=== PATIENT | male | born 1930 | race Caucasian/White ===

== ENCOUNTER 2016-07-05 16:29 | Emergency (ER) | payer MEDICARE, OTHER ==
[~2016-07-05 16:29] MED LIST: ALBUTEROL S3 ML/VIAL NEB; ARICEPT10 MG PO; AUGMENTIN 875-1 EACH PO; BENECALORI7.5 KCAL/1 PO; CARDIZEM60 MG PO; CILOSTAZOL100 MG PO; CULTURELLE1 EACH PO; DAILY VITE1 EACH PO; ENEMA READY TO133 ML RC; IPRAT-ALBUT 0.5-3 ML NEB; LACTULOSE10 GM/151 PO; LACTULOSE20 GM/30 M PO; LIPITOR10 MG PO; METOPROLOL TART25 MG PO; MICATIN14 GM TOP; MUCINEX600 MG PO; NAMENDA XR14 MG PO; PEPCID20 MG PO; PLAVIX75 MG PO; PREDNISONE10 MG PO; ROBITUSSIN COU1 EACH PO; SEROQUEL25 MG PO; SPIRIVA18 MCG IH; TYLENOL EXTRA500 MG PO; ZOFRAN4 MG PO; [UNRECOGNIZED DRUG - OTHER] PO
== END 2016-07-05 19:22 | disposition critical access hospital (66) ==
LOC: ER 16:29
DX: E87.0 Hyperosmolality and hypernatremia (principal); E86.0 Dehydration; I13.0 Hypertensive heart and chronic kidney disease with heart failure and stage 1 through stage 4 chronic kidney disease, or unspecified chronic kidney disease; N18.3 Chronic kidney disease, stage 3 (moderate); I50.9 Heart failure, unspecified; N17.9 Acute kidney failure, unspecified; F03.91 Unspecified dementia, unspecified severity, with behavioral disturbance; R13.10 Dysphagia, unspecified; I25.2 Old myocardial infarction; E78.5 Hyperlipidemia, unspecified; I73.9 Peripheral vascular disease, unspecified; Z86.73 Personal history of transient ischemic attack (TIA), and cerebral infarction without residual deficits; Z87.891 Personal history of nicotine dependence; Z90.89 Acquired absence of other organs; Z79.899 Other long term (current) drug therapy; Z88.8 Allergy status to other drugs, medicaments and biological substances
CPT/HCPCS: 36415; 96361; 96365; 96375; J2704

== ENCOUNTER 2016-07-05 16:29 | Inpatient (IN) | payer MEDICARE, OTHER ==
--- NOTE | 2016-07-17 07:23 | NUR ---
LATE ENTRY: AT 1450 ON 07/15/16 PATIENT WAS FOUND WITH NO PULSE AND NO RESPIRATIONS. PUPILS FIXED. PERCY RUIZ NOTIFIED. THEN DR. SANTILLAN WAS NOTIFIED AND THE PATIENT PRONOUNCED . ESPERANZA GREEN PA-C TO NOTIFY FAMILY.
== END 2016-07-15 17:45 | disposition expired | DRG 682 ==
LOC: ER 16:29 → MED 19:23
PROVIDERS: ADMIT Internal Medicine
DX: N17.9 Acute kidney failure, unspecified (principal); G93.40 Encephalopathy, unspecified; E87.0 Hyperosmolality and hypernatremia; J96.10 Chronic respiratory failure, unspecified whether with hypoxia or hypercapnia; E87.2 Acidosis; E46 Unspecified protein-calorie malnutrition; Z68.1 Body mass index [BMI] 19.9 or less, adult; E87.5 Hyperkalemia; R34 Anuria and oliguria; D72.829 Elevated white blood cell count, unspecified; J44.9 Chronic obstructive pulmonary disease, unspecified; Z99.81 Dependence on supplemental oxygen; F01.50 Vascular dementia, unspecified severity, without behavioral disturbance, psychotic disturbance, mood disturbance, and anxiety; E78.5 Hyperlipidemia, unspecified; R13.10 Dysphagia, unspecified; E86.0 Dehydration; Z66 Do not resuscitate; I48.91 Unspecified atrial fibrillation; I73.9 Peripheral vascular disease, unspecified; N18.3 Chronic kidney disease, stage 3 (moderate); I50.9 Heart failure, unspecified; Z79.82 Long term (current) use of aspirin; Z79.02 Long term (current) use of antithrombotics/antiplatelets; Z79.899 Other long term (current) drug therapy; Z87.891 Personal history of nicotine dependence
CPT/HCPCS: 36415; 92610; J1644; J1650; J2704